=== PATIENT | male | born 1990 | race Two or more races ===

== ENCOUNTER 2016-05-06 07:39 | Emergency (ER) | payer OTHER ==
[~2016-05-06] VITALS: Ht 175.3 cm; Wt 65.8 kg
[~2016-05-06 07:39] MED LIST: Dolutegravir Sodium 50mg tab ORAL SCH; Emitricitabine/Tenofovir 200/300mg tab ORAL SCH
[2016-05-06] MEDS ORDERED: NKM (07:50)
[2016-05-06 07:56] VITALS: BP 139/87
[2016-05-06] MEDS ORDERED: TRUVADA 200 MG1 EAC1 ORAL (08:05)
[2016-05-06] MEDS ORDERED: TIVICAY50 MG ORAL (08:05)
[2016-05-06] MEDS ORDERED: TdaP Vaccine 0.5ml Syr IM ONE (08:15)
[2016-05-06 08:23] LABS: EOSINOPHILS % (AUTO) 2.7 % (0.0-3.0); LYMPHOCYTES % (AUTO) 46.1 % (20.0-45.0); MEAN CORPUSCULAR HEMOGLOBIN 28.6 PG (27.0-31.0); MEAN CORPUSCULAR HGB CONC 33.3 G/DL (32.0-36.0); MEAN CORPUSCULAR VOLUME 86 FL (80-99); MEAN PLATELET VOLUME 8.1 FL (6.5-10.1); MONOCYTES % (AUTO) 14.4 % (1.0-10.0); NEUTROPHILS % (AUTO) 35.8 % (45.0-75.0); PLATELET COUNT 194 K/UL (150-450); RED BLOOD COUNT 5.68 M/UL (4.70-6.10); RED CELL DISTRIBUTION WIDTH 11.2 % (11.6-14.8); WHITE BLOOD COUNT 7.5 K/UL (4.8-10.8)
[2016-05-06] MEDS ORDERED: ONDANSETRON ODT4 MG ORAL (08:25)
[2016-05-06 08:37] VITALS: BP 139/87
[2016-05-06 08:38] LABS: ALANINE AMINOTRANSFERASE 20 U/L (3-41); AMYLASE 64 U/L (10-110); ANION GAP 21 (5-15); ASPARTATE AMINO TRANSFERASE 20 U/L (5-40); BILIRUBIN,DIRECT 0.1 mg/dL (0.1-0.3); CALCIUM 10.4 mg/dL (8.6-10.2); CARBON DIOXIDE 23 mEQ/L (20-30); CHLORIDE 98 mEQ/L (98-107); GLOMERULAR FILTRATION RATE > 60 mL/min (>60); HEMOLYSIS 5; PHOSPHORUS 4.2 mg/dL (2.5-4.8); POTASSIUM 4.1 mEQ/L (3.4-4.9); SODIUM 142 mEQ/L (135-145); TOTAL PROTEIN 8.2 g/dL (6.6-8.7)
[2016-05-06] MEDS ORDERED: Dolutegravir Sodium 50mg tab ORAL SCH (09:00)
[2016-05-06] MEDS ORDERED: Emitricitabine/Tenofovir 200/300mg tab PO SCH (09:00)
--- NOTE | 2016-05-06 11:06 | Emergency Room Report ---
History of Present Illness General Chief Complaint: General Complaint Source: Patient Present Illness HPI Patient is a 25-year-old male who presented after accidental needle stick at work. 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 The patient who was being drawn had not been taking any antiviral medications. Patient was noted to have moved and accidentally 23- gauge needle was noted to puncture the left hand. Injury occurred prior to arrival. The patient is had not had a recent tetanus vaccine Allergies: Coded Allergies: No Known Allergies (Unverified , 05/06/16) Patient History Past Medical History: see triage record Reviewed Nursing Documentation: PMH: Agreed, PSxH: Agreed Nursing Documentation-PMH Past Medical History: No Stated History Review of Systems All Other Systems: negative except mentioned in HPI Physical Exam Vital Signs Date Time Temp Pulse Resp B/P Pulse Ox O2 Delivery O2 Flow Rate FiO2 05/06/16 07:47 98.2 61 16 139/87 100 Room Air General Appearance: well appearing, no apparent distress, alert, GCS 15, non- toxic Head: normocephalic, atraumatic ENT: hearing grossly normal, normal voice Neck: full range of motion, supple Respiratory: no respiratory distress, speaking full sentences Cardiovascular #1: normal inspection, regular rate, rhythm Gastrointestinal: normal inspection, non tender, soft Musculoskeletal: no calf tenderness Neurologic: normal inspection, alert, oriented x3, responsive, normal gait Psychiatric: mood/affect normal Skin: no rash, other - puncture wound Medical Decision Making Diagnostic Impression: Primary Impression: Accidental needlestick injury with exposure to body fluid ER Course Patient presented for needle stick. Differential diagnosis included was not limited to high risk exposure, low risk exposure, foreign body.Because of complexity of patient's case laboratory testing and imaging studies were ordered. Baseline HIV and hepatitis labs were drawn. Because the patient had no HIV and is high-risk the patient is being started on prophylaxis. The patient had recent respiratory infection. He was given prescription for Zofran and was advised to remain off of work until recheck by employee health in 3 days. The source patient's HIV was preliminarily positive Laboratory Tests Test 05/06/16 08:03 White Blood Count 7.5 K/UL (4.8-10.8) Red Blood Count 5.68 M/UL (4.70-6.10) Hemoglobin 16.3 G/DL (14.2-18.0) Hematocrit 48.9 % (42.0-52.0) Mean Corpuscular Volume 86 FL (80-99) Mean Corpuscular Hemoglobin 28.6 PG (27.0-31.0) Mean Corpuscular Hemoglobin Concent 33.3 G/DL (32.0-36.0) Red Cell Distribution Width 11.2 % (11.6-14.8) L Platelet Count 194 K/UL (150-450) Mean Platelet Volume 8.1 FL (6.5-10.1) Neutrophils (%) (Auto) 35.8 % (45.0-75.0) L Lymphocytes (%) (Auto) 46.1 % (20.0-45.0) H Monocytes (%) (Auto) 14.4 % (1.0-10.0) H Eosinophils (%) (Auto) 2.7 % (0.0-3.0) Basophils (%) (Auto) 1.0 % (0.0-2.0) Sodium Level 142 mEQ/L (135-145) Potassium Level 4.1 mEQ/L (3.4-4.9) Chloride Level 98 mEQ/L (98-107) Carbon Dioxide Level 23 mEQ/L (20-30) Anion Gap 21 (5-15) H Blood Urea Nitrogen 13 mg/dL (7-23) Creatinine 1.0 mg/dL (0.7-1.2) Estimate Glomerular Filtration Rate > 60 mL/min (>60) Glucose Level 92 mg/dL (74-106) Calcium Level 10.4 mg/dL (8.6-10.2) H Phosphorus Level 4.2 mg/dL (2.5-4.8) Total Bilirubin 0.3 mg/dL (0.0-1.2) Direct Bilirubin 0.1 mg/dL (0.1-0.3) Aspartate Amino Transferase (AST) 20 U/L (5-40) Alanine Aminotransferase (ALT) 20 U/L (3-41) Alkaline Phosphatase 75 U/L (40-129) Total Protein 8.2 g/dL (6.6-8.7) Albumin 5.0 g/dL (3.5-5.2) Amylase Level 64 U/L (10-110) Hepatitis B Surface Antibody Pending Hepatitis C Antibody Pending HIV (1&2) Antibody Rapid Negative (NEGATIVE) Last Vital Signs Date Time Temp Pulse Resp B/P Pulse Ox O2 Delivery O2 Flow Rate FiO2 05/06/16 08:37 98.2 16 139/87 100 Room Air 05/06/16 07:47 61 Status: unchanged Disposition: HOME, SELF-CARE Condition: Stable Scripts Ondansetron Odt* (ZOFRAN ODT*) 4 Mg Tab.rapdis 4 MG ORAL EVERY 8 HOURS, #10 TAB 0 Refills Prov: Dar Carlson 05/06/16 Dolutegravir Sodium (Tivicay) 50 Mg Tablet 50 MG ORAL DAILY, #3 TAB Prov: Dar Carlson 05/06/16 Emtricitabine/Tenofovir 200-300MG* (TRUVADA 200-300MG*) 1 Each Tablet 1 TAB ORAL DAILY, #3 TAB Prov: Dar Carlson 05/06/16 Referrals: NON PHYSICIAN (PCP) Patient Instructions: Needle Stick Injury, [id number] Additional Instructions: follow up with employee health Dar Carlson May 06, 2016 11:06
[2016-05-11] MEDS ORDERED: TRUVADA 200 MG1 EAC1 ORAL (23:34)
[2016-05-11] MEDS ORDERED: TIVICAY50 MG ORAL (23:34)
== END 2016-05-06 08:38 | disposition home or self-care (01) ==
LOC: EMR 07:55
DX: S61.432A Puncture wound without foreign body of left hand, initial encounter (principal); Z77.21 Contact with and (suspected) exposure to potentially hazardous body fluids; Z23 Encounter for immunization; W46.0XXA Contact with hypodermic needle, initial encounter; Y92.9 Unspecified place or not applicable; Y99.0 Civilian activity done for income or pay
CPT/HCPCS: 36415; 80069; 80076; 82150; 85025; 86703; 86803; 87517; 90471; 90715; 99284

== ENCOUNTER 2016-11-20 19:50 | Emergency (ER) | payer OTHER ==
[~2016-11-20] VITALS: Ht 175.3 cm; Wt 65.8 kg
[~2016-11-20 19:50] MED LIST changes: -Dolutegravir Sodium 50mg tab ORAL SCH; -Emitricitabine/Tenofovir 200/300mg tab ORAL SCH; +NKM; +ONDANSETRON ODT4 MG ORAL; +TIVICAY50 MG ORAL; +TRUVADA 200 MG1 EAC1 ORAL
[2016-11-20] MEDS ORDERED: Ciprofloxacin 500mg tab ORAL ONE (20:15)
[2016-11-20 20:30] VITALS: BP 120/88
--- NOTE | 2016-11-20 20:37 | Emergency Room Report ---
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 Was reported that the patient received exposure on 11/19/2016 to patient MR#[id number]. The patient states that he received contact via holding the patient during lumbar puncture. He states he was wearing gloves and a mask. The patient denies experiencing any signs or symptoms including nausea, vomiting, fever, chills, headache, dizziness, blurred vision, neck pain or stiffness, rash. The patient denies any known allergies to medication including ciprofloxacin. Allergies: Coded Allergies: No Known Allergies (Unverified , 05/06/16) Nursing Documentation-[facility] Past Medical History: No Stated History Review of Systems All Other Systems: negative except mentioned in HPI Physical Exam Vital Signs Date Time Temp Pulse Resp B/P (MAP) Pulse Ox O2 Delivery O2 Flow Rate FiO2 11/20/16 20:07 98.1 80 16 122/80 99 Room Air Sp02 EP Interpretation: reviewed, normal General Appearance: no apparent distress, alert, GCS 15, non-toxic Head: normocephalic, atraumatic Eyes: bilateral eye normal inspection, bilateral eye PERRL ENT: hearing grossly normal, normal pharynx, no angioedema, normal voice Neck: full range of motion, supple, no bony tend, supple/symm/no masses Neurologic: alert, oriented x3, responsive, motor strength/tone normal, sensory intact, speech normal Psychiatric: judgement/insight normal, memory normal, mood/affect normal, no suicidal/homicidal ideation Skin: normal color, no rash, warm/dry, well hydrated Medical Decision Making PA Attestation Dr. Jasso is my supervising physician. Patient management was discussed with my supervising physician Diagnostic Impression: Primary Impression: Exposure to meningitis ER Course The patient is a 25 yo M presenting after meningitis exposure DDx considered but not limited to: meningitis, migraine ORTEGA, URI, among others PE: vitals WNL. NAD Head NC/AT PERRL Neck is soft, supple, non tender. The patient is given one dose of cipro 500mg PO in the ED and will be DC'ed with ER precautions Last Vital Signs Date Time Temp Pulse Resp B/P (MAP) Pulse Ox O2 Delivery O2 Flow Rate FiO2 11/20/16 20:07 98.1 80 16 122/80 99 Room Air Status: improved Disposition: HOME, SELF-CARE Condition: Improved Patient Instructions: Droplet Precautions, Bacterial Meningitis Additional Instructions: I discussed my findings with the patient. All questions and concerns have been answered. Treatment and medication compliance have been addressed. I advised the patient that they need to follow up with PMD. Return to ED if you or Noticed symptoms such as nausea, vomiting, headache, blurred vision, neck pain or stiffness, fever, chills, rash or if needed for any reason. Patient verbalized understanding of discharge instructions. IBRAHIMA ROBERTS Nov 20, 2016 20:36
== END 2016-11-20 20:30 | disposition home or self-care (01) ==
LOC: EMR 20:05
DX: Z20.89 Contact with and (suspected) exposure to other communicable diseases (principal)
CPT/HCPCS: 99283